=== PATIENT | male | born 1970 | race Caucasian/White ===

== ENCOUNTER 2023-02-22 19:50 | Inpatient (IN) | payer BC, SELFPAY ==
--- NOTE | 2023-02-22 20:12 | RAD REPORT ---
EXAM DESCRIPTION: CT - Ct Stroke Brain Wo Cont - 02/22/2023 8:05 pm CLINICAL HISTORY: STROKE ALERT Headache, drowsiness, CVA symptomology COMPARISON: No comparisons TECHNIQUE: All CT scans are performed using dose optimization technique as appropriate and may inclu de automated exposure control or mA/KV adjustment according to patient size. FINDINGS: No intracranial hemorrhage, hydrocephalus or extra-axial fluid collection.No areas of brai n edema or evidence of midline shift. The paranasal sinuses and mastoids are clear. The calvarium is intact. IMPRESSION: No acute intracranial abnormality. The findings were discussed with JERRELL Foster on 02/22/2023 at 8:06 p.m. by telephone.
[2023-02-22] MEDS ORDERED: TENECTEPLASE 50 MG/10 ML VIAL IV ONE (20:18)
[2023-02-22 20:46] LABS: Absolute Lymphocytes (CBC) 2.8 K/uL (0.7-4.9); Hematocrit 36.6 % (39.6-49.0); Lymphocytes % 31.4 % (15.3-44.8); MCV 80.6 fL (80-100); MPV 8.8 fL (7.6-11.3); Platelets 203 thou/uL (152-406); RBC Red Blood Cell Count 4.54 M/uL (4.33-5.43)
[2023-02-22 20:48] LABS: Protime INR 1.06
[2023-02-22 20:56] LABS: ALT/SGPT 37 U/L (16-61); AST/SGOT 19 U/L (15-37); Albumin 3.5 g/dL (3.4-5.0); BUN Blood Urea Nitrogen 20 mg/dL (7-18); Bicarbonate 27 mEq/L (21-32); Bilirubin Direct < 0.1 mg/dL (0-0.2); Bilirubin Total 0.3 mg/dL (0.2-1.0); Glomerular Filtration Rate 55 ml/min (=/>90); Glucose Level 99 mg/dL (74-106); Magnesium 2.1 mg/dL (1.6-2.4); Potassium 3.6 mEq/L (3.5-5.1); Protein, Total 7.3 g/dL (6.4-8.2); Sodium Level 142 mEq/L (136-145)
--- NOTE | 2023-02-22 20:59 | RAD REPORT ---
EXAM DESCRIPTION: RAD - Chest Single View - 02/22/2023 8:48 pm CLINICAL HISTORY: CHEST PAIN Chest pain. COMPARISON: <Comparisons> FINDINGS: Portable technique limits examination quality. The lungs are grossly clear. The heart is mildly enlarged in size. No displaced fractures. IMPRESSION: No acute intrathoracic process suspected.
[2023-02-22 21:00] LABS: Alkaline Phosphatase 87 U/L (45-117); NT PRO-BNP 97 pg/mL (<125)
--- NOTE | 2023-02-22 21:13 | RAD REPORT ---
EXAM DESCRIPTION: CT - Head angio - 02/22/2023 9:02 pm CLINICAL HISTORY: Dizziness;Declining state Headache, drowsiness, CVA symptomology COMPARISON: Ct Stroke Brain Wo Cont dated 02/22/2023 TECHNIQUE: CT angiography of the head was performed with MIPs. All CT scans are performed using dose optimization technique as appropriate and may include automated exposure control or mA/KV adjustment according to patient size. FINDINGS: No evidence of large vessel occlusion. No evidence of aneurysm is detected. No flow-limiti ng stenosis or vascular malformation identified. Antegrade flow is seen in the vertebral arteries. The vertebral arteries are codominant. The visualized dural venous sinuses are patent. IMPRESSION: No significant flow abnormality is detected.
--- NOTE | 2023-02-22 21:17 | RAD REPORT ---
EXAM DESCRIPTION: CT - Neck Angio - 02/22/2023 9:02 pm CLINICAL HISTORY: FACIAL PAIN Headache, drowsiness, CVA symptomology COMPARISON: No comparisons TECHNIQUE: CT angiography of the neck vessels was performed with MIPs. All CT scans are performed using dose optimization technique as appropriate and may include automated exposure control or mA/KV adjustment according to patient size. FINDINGS: A left aortic arch is identified with normal three vessel configuration of the great vesse ls. No significant flow abnormality is seen of the common carotid bilaterally. No significant stenosis is identified involving the cervical segments of both internal carotid arteri es. Normal flow is seen within both vertebral arteries. IMPRESSION: No significant flow abnormality of the neck vessels is identified. NASCET criteria used. Mild 0-49% stenosis Moderate 50-69% stenosis Severe 70-99% stenosis
--- NOTE | 2023-02-22 22:02 | ER ---
Nurse's Notes [facility] Name: Bobo Alfaro Age: 52 yrs Sex: Male : 1970 Arrival Date: 02/22/2023 Time: 19:50 Bed 5 Private MD: Diagnosis: Dysarthria following other cerebrovascular disease;Acute cerebrovascular accident, acute dysarthria, atypical chest pain, Presentation: 02/22 20:02 Chief complaint: Spouse and/or significant other states: left sided CP onset 0. lg3 began radiating to left shoulder with left arm numbness at 1930. at registration began slurring words with left sided facial numbness at 1950. 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 Coronavirus screen: Client denies travel out of the [place] in the last 14 days. At this time, the client does not indicate any symptoms associated with coronavirus-19. Ebola Screen: No symptoms or risks identified at this time. Initial Sepsis Screen: Does the patient meet any 2 criteria? No. Patient's initial sepsis screen is negative. Does the patient have a suspected source of infection? No. Patient's initial sepsis screen is negative. Risk Assessment: Do you want to hurt yourself or someone else? Patient reports no desire to harm self or others. Onset of symptoms was February 22, 2023 at 19:00. 20:02 Method Of Arrival: Ambulatory lg3 20:02 Acuity: ANURAG 2 lg3 Triage Assessment: 20:24 General: Appears in no apparent distress. uncomfortable, Behavior is calm, cooperative. lg3 Pain: Complains of pain in chest Pain radiates to back and left arm. EENT: No deficits noted. No signs and/or symptoms were reported regarding the EENT system. Neuro: Level of Consciousness is awake, alert, obeys commands, Oriented to person, place, time, situation, Stand Grinder are weak on left Speech is slurred, Facial symmetry appears normal, Numbness in face and left arm Reports numbness in face and left arm. Cardiovascular: No deficits noted. Reports chest pain, Capillary refill < 3 seconds Clubbing of nail beds is absent JVD is absent Patient's skin is warm and dry. Respiratory: No deficits noted. Airway is patent Respiratory effort is even, unlabored, Respiratory pattern is regular, symmetrical. GI: No deficits noted. No signs and/or symptoms were reported involving the gastrointestinal system. : No deficits noted. No signs and/or symptoms were reported regarding the genitourinary system. Derm: No deficits noted. No signs and/or symptoms reported regarding the dermatologic system. Skin is intact, is healthy with good turgor, Skin is dry, Skin is normal, Skin temperature is warm. Musculoskeletal: Range of motion: intact in all extremities. Historical: - Allergies: 20:24 No Known Allergies; lg3 - Home Meds: 20:49 telmisartan 80 mg oral tablet 1 tab daily [Active]; hydralazine 100 mg Oral tablet 1 kl tab 3 times per day [Active]; carvedilol 25 mg oral tablet 1 tab 2 times per day [Active]; eplerenone 50 mg oral tablet 1 tab 2 times per day [Active]; bumetanide 1 mg Oral tablet 1 tab daily [Active]; amlodipine 10 mg tablet 1 tab daily [Active]; aspirin 81 mg Oral capsule 1 cap daily [Active]; - PMHx: 20:24 CHF; blood clot in lung; lg3 - PSHx: 20:24 jaw; knee; foot; lg3 - Immunization history:: Adult Immunizations up to date, Client reports receiving the 2nd dose of the Covid vaccine. - Social history:: Smoking status: Patient denies any tobacco usage or history of. - Family history:: not pertinent. Screenin:00 [facility] ED Fall Risk Assessment (Adult) History of falling in the last 3 months, kl including since admission No falls in past 3 months (0 pts) Confusion or Disorientation No (0 pts) Intoxicated or Sedated No (0 pts) Impaired Gait No (0 pts) Mobility Assist Device Used No (0 pt) Altered Elimination No (0 pt) Score/Fall Risk Level 0 - 2 = Low Risk Oriented to surroundings, Maintained a safe environment, Educated pt \T\ family on fall prevention, incl call for assistance when getting out of bed. Abuse screen: Denies threats or abuse. Nutritional screening: No deficits noted. Tuberculosis screening: No symptoms or risk factors identified. 22:30 [facility]entry Swallow Protocol Brief Cognitive Screen What is your name? Normal, Where are you kl right now? Normal, What year is it? Normal. Oral Mechanism Examination Facial Symmetry: Normal, Motion: Normal, Lip Closure: Normal, Oral Mechanism Result: Normal. 3 oz Water Swallow Challenge: Pt able to drink all water without stopping, coughing, choking or throat clearing: Yes Result: PASS. Assessment: 20:50 Reassessment: going to CT. ha1 21:09 Reassessment: back from CT. ha1 21:09 Reassessment: Patient and/or family updated on plan of care and expected duration. Pain ha1 level reassessed. Patient is alert, oriented x 3, equal unlabored respirations, skin warm/dry/pink. 22:10 Reassessment: Patient and/or family updated on plan of care and expected duration. Pain ha1 level reassessed. Patient is alert, oriented x 3, equal unlabored respirations, skin warm/dry/pink. Patient states feeling better. Patient states symptoms have improved. 23:14 Reassessment: CT results back Dr Vicente at bedside. Vital Signs: 20:02 BP 174 / 92; Pulse 64; Resp 19 S; Pulse Ox 100% on R/A; Height 6 ft. 3 in. (R); lg3 20:21 BP 174 / 92; Pulse 72; Resp 16; Pulse Ox 100% on R/A; Weight 168.74 kg; Height 6 ft. 2 kl in. ; 21:09 BP 142 / 78; Pulse 63; Resp 17 S; Pulse Ox 99% on R/A; ha1 22:10 BP 128 / 65; Pulse 63; Resp 17 S; Pulse Ox 98% on R/A; ha1 22:45 BP 136 / 70; Pulse 64; Resp 17 S; Pulse Ox 99% ; ha1 02/23 01:48 BP 127 / 67; Pulse 54; Resp 18; Pulse Ox 96% on R/A; kl 02/22 20:21 Body Mass Index 47.76 (168.74 kg, 187.96 cm) Juan Carlos Coma Score: 02/22 20:29 Eye Response: spontaneous(4). Motor Response: obeys commands(6). Verbal Response: lg3 oriented(5). Total: 15. NIH Stroke Scale Scores: 20:26 NIHSS Score: 3 sp4 20:29 NIHSS Score: 3 lg3 20:32 NIHSS Score: 3 kl ED Course: 19:59 Patient arrived in ED. lg3 19:59 Patient has correct armband on for positive identification. Placed in gown. Bed in low ha1 position. Call light in reach. Side rails up X2. Adult w/ patient. 20:07 CT Stroke Brain w/o Contrast In Process Unspecified. EDMS 20:11 Elieser Vicente MD is Attending Physician. snw 20:24 Triage completed. lg3 20:24 Arm band placed on right wrist. lg3 20:29 Client placed on continuous cardiac and pulse oximetry monitoring. NIBP monitoring lg3 applied. spouter on. Family accompanied patient. 20:29 Patient maintains SpO2 saturation greater than 95% on room air. lg3 20:50 XRAY Chest (1 view) In Process Unspecified. EDMS 21:04 CT Head Angio In Process Unspecified. EDMS 21:04 CT Neck Angio In Process Unspecified. EDMS 22:01 Dong Newton MD is Hospitalizing Provider. sp4 02/23 01:49 Provided Education on: Procedure Consent. 01:49 No provider procedures requiring assistance completed. Patient admitted, IV remains in kl place. Administered Medications: 02/22 20:26 Drug: TNK FOR STROKE - Tenecteplase IV 0.25 mg/kg IV at per protocol once; MAX kl DOSE 25 mg, IVP over 5 seconds {Co-Signature: [email or web address] (Marcela Lopez RN).} Route: IV; Rate: per protocol; Site: right antecubital; Medication: 02/23 01:49 VIS not applicable for this client. Outcome: 02/22 22:01 Decision to Hospitalize by Provider. sp4 02/23 01:49 Admitted to ICU accompanied by nurse, via stretcher, room 1, Report called to Minerva matthews Condition: improved Discharge instructions given to patient, Instructed on the need for admit, Demonstrated understanding of instructions, 01:59 Patient left the ED. NIH Stroke Scale - NIH Stroke Score Date: 02/22/2023 Time: 20:26 Total Score = 3 10. Dysarthria (speech clarity - read or repeat words) - 1(Mild to Moderate) 11. Extinction and Inattention (visual/tactile/auditory/spatial/personal) - 0(No abnormality) 1a. Level of Consciousness (LOC) - 0(Alert) 1b. Level of Consciousness (LOC) (Month \T\ Age) - 0(Both) 1c. LOC Commands (Open \T\ Closes Eyes/Pulp Beater) - 0(Both) 2. Best Gaze (Lateral Gaze Paresis) - 0(Normal) 3. Visual Field Loss - 0(No visual loss) 4. Facial Palsy - 0(Normal) 5a. Left Arm: Motor (10-second hold) - 0(No drift) 5b. Right Arm: Motor (10-second hold) - 0(No drift) 6a. Left Leg: Motor (5-second hold - always test supine) - 1(Drift) 6b. Right Leg: Motor (5-second hold - always test supine) - 0(No drift) 7. Limb Ataxia (finger/nose \T\ heel/easley - test with eyes open) - 0(Absent) 8. Sensory Loss (pinprick arms/legs/face) - 1(Mild to moderate loss) 9. Best Language: Aphasia (description/naming/reading) - 0(No aphasia) Initials: sp4 NIH Stroke Scale - NIH Stroke Score Date: 02/22/2023 Time: 20:29 Total Score = 3 10. Dysarthria (speech clarity - read or repeat words) - 1(Mild to Moderate) 11. Extinction and Inattention (visual/tactile/auditory/spatial/personal) - 0(No abnormality) 1a. Level of Consciousness (LOC) - 0(Alert) 1b. Level of Consciousness (LOC) (Month \T\ Age) - 0(Both) 1c. LOC Commands (Open \T\ Closes Eyes/Pulp Beater) - 0(Both) 2. Best Gaze (Lateral Gaze Paresis) - 0(Normal) 3. Visual Field Loss - 0(No visual loss) 4. Facial Palsy - 0(Normal) 5a. Left Arm: Motor (10-second hold) - 0(No drift) 5b. Right Arm: Motor (10-second hold) - 0(No drift) 6a. Left Leg: Motor (5-second hold - always test supine) - 1(Drift) 6b. Right Leg: Motor (5-second hold - always test supine) - 0(No drift) 7. Limb Ataxia (finger/nose \T\ heel/easley - test with eyes open) - 0(Absent) 8. Sensory Loss (pinprick arms/legs/face) - 1(Mild to moderate loss) 9. Best Language: Aphasia (description/naming/reading) - 0(No aphasia) Initials: lg3 NIH Stroke Scale - NIH Stroke Score Date: 02/22/2023 Time: 20:32 Total Score = 3 10. Dysarthria (speech clarity - read or repeat words) - 0(Normal) 11. Extinction and Inattention (visual/tactile/auditory/spatial/personal) - 0(No abnormality) 1a. Level of Consciousness (LOC) - 0(Alert) 1b. Level of Consciousness (LOC) (Month \T\ Age) - 0(Both) 1c. LOC Commands (Open \T\ Closes Eyes/Pulp Beater) - 0(Both) 2. Best Gaze (Lateral Gaze Paresis) - 0(Normal) 3. Visual Field Loss - 0(No visual loss) 4. Facial Palsy - 1(Minor Paralysis) 5a. Left Arm: Motor (10-second hold) - 0(No drift) 5b. Right Arm: Motor (10-second hold) - 0(No drift) 6a. Left Leg: Motor (5-second hold - always test supine) - 1(Drift) 6b. Right Leg: Motor (5-second hold - always test supine) - 0(No drift) 7. Limb Ataxia (finger/nose \T\ heel/easley - test with eyes open) - 0(Absent) 8. Sensory Loss (pinprick arms/legs/face) - 1(Mild to moderate loss) 9. Best Language: Aphasia (description/naming/reading) - 0(No aphasia) Initials: cassie Signatures: Dispatcher [employer] Mary Mantilla RN RN kl Waters, Shelly, SOFTWARE MANAGER-C SOFTWARE MANAGER-Csnw Pinky Fuller RN RN lg3 Marcela Lopez RN RN ha1 Elieser Vicente MD MD sp4 Marcela Lopez RN ha1
--- NOTE | 2023-02-22 22:02 | EDPHYS ---
Physician Documentation [facility] Name: Bobo Alfaro Age: 52 yrs Sex: Male : 1970 Arrival Date: 02/22/2023 Time: 19:50 Bed 5 Private MD: ED Physician Elieser Vicente HPI: 02/22 20:16 This 52 yrs old Male presents to ER via Unassigned with complaints of sp4 weakness left arm , slurred speech. 20:27 52-year-old male with past medical history of congestive heart failure and pulmonary sp4 embolus, presents with acute onset of left-sided weakness described as left arm weakness associated with slurring of his speech and associated with concurrent chest pain also left-sided numbness and tingling starting at 7 PM. Patient states he takes aspirin 83 mg daily. Also history of hypertension. . Historical: - Allergies: 20:24 No Known Allergies; lg3 - Home Meds: 20:49 telmisartan 80 mg oral tablet 1 tab daily [Active]; hydralazine 100 mg Oral tablet 1 kl tab 3 times per day [Active]; carvedilol 25 mg oral tablet 1 tab 2 times per day [Active]; eplerenone 50 mg oral tablet 1 tab 2 times per day [Active]; bumetanide 1 mg Oral tablet 1 tab daily [Active]; amlodipine 10 mg tablet 1 tab daily [Active]; aspirin 81 mg Oral capsule 1 cap daily [Active]; - PMHx: 20:24 CHF; blood clot in lung; lg3 - PSHx: 20:24 jaw; knee; foot; lg3 - Immunization history:: Adult Immunizations up to date, Client reports receiving the 2nd dose of the Covid vaccine. - Social history:: Smoking status: Patient denies any tobacco usage or history of. - Family history:: not pertinent. ROS: 20:27 Constitutional: Negative for fever, chills, and weight loss, positive chest pain sp4 positive left arm numbness positive left arm weakness positive for slurred speech positive left-sided body numbness. Eyes: Negative for injury, pain, redness, and discharge, 20:27 All other systems are negative, Exam: 20:27 Constitutional: This is a well developed, well nourished patient who is awake, alert, sp4 and in no acute distress. Head/Face: Normocephalic, atraumatic. Eyes: Pupils equal round and reactive to light, extra-ocular motions intact. Lids and lashes normal. Conjunctiva and sclera are not injected. Cornea within normal limits. Periorbital areas with no swelling, redness, or edema. ENT: Nares patent. No nasal discharge, no septal abnormalities noted. Tympanic membranes are normal and external auditory canals are clear. Oropharynx with no redness, swelling, or masses, exudates, or evidence of obstruction, uvula midline. Mucous membranes moist. Neck: Trachea midline, no thyromegaly or masses palpated, and no cervical lymphadenopathy. Supple, full range of motion without nuchal rigidity, or vertebral point tenderness. Chest/axilla: Normal chest wall appearance and motion. Nontender with no deformity. No lesions are appreciated. Cardiovascular: Regular rate and rhythm with a normal S1 and S2. No gallops, murmurs, or rubs. Normal PMI, no JVD. No pulse deficits. Respiratory: Lungs have equal breath sounds bilaterally, clear to auscultation and percussion. No rales, rhonchi or wheezes noted. No increased work of breathing, no retractions or nasal flaring. Abdomen/GI: Soft, non-tender, with normal bowel sounds. No distension or tympany. No guarding or rebound. No evidence of tenderness throughout. Back: No spinal tenderness. No costovertebral tenderness. Skin: Warm, dry with normal turgor. Normal color with no rashes, no lesions, and no evidence of cellulitis. MS/ Extremity: Pulses equal, no cyanosis. Neurovascular intact. Full, normal range of motion. Neuro: Awake and alert, GCS 15, oriented to person, place, time, and situation. Positive left facial numbness, positive slurring of the speech, positive mild left arm weakness 4 out of 5, positive mild left lower extremity weakness 4 out of 5 , positive decreased sensation on the left side Psych: Awake, alert, with orientation to person, place and time. Behavior, mood, and affect are within normal limits 20:27 ECG was reviewed by the Attending Physician. There is EKG 2008, normal sinus rhythm with a rate of 69, normal EKG. No ST elevation or depression, no ectopy Vital Signs: 20:02 BP 174 / 92; Pulse 64; Resp 19 S; Pulse Ox 100% on R/A; Height 6 ft. 3 in. (R); lg3 20:21 BP 174 / 92; Pulse 72; Resp 16; Pulse Ox 100% on R/A; Weight 168.74 kg; Height 6 ft. 2 kl in. ; 21:09 BP 142 / 78; Pulse 63; Resp 17 S; Pulse Ox 99% on R/A; ha1 22:10 BP 128 / 65; Pulse 63; Resp 17 S; Pulse Ox 98% on R/A; ha1 22:45 BP 136 / 70; Pulse 64; Resp 17 S; Pulse Ox 99% ; ha1 02/23 01:48 BP 127 / 67; Pulse 54; Resp 18; Pulse Ox 96% on R/A; kl 02/22 20:21 Body Mass Index 47.76 (168.74 kg, 187.96 cm) kl NIH Stroke Scale Scores: 02/22 20:26 NIHSS Score: 3 sp4 20:29 NIHSS Score: 3 lg3 20:32 NIHSS Score: 3 kl Parshall Coma Score: 20:29 Eye Response: spontaneous(4). Motor Response: obeys commands(6). Verbal Response: lg3 oriented(5). Total: 15. MDM: 20:08 Data reviewed: vital signs, nurses notes. Management of patient was discussed with the snw following: Dr. Resendez, CT head negative for acute findings. 20:11 Patient medically screened. snw 21:59 Differential Diagnosis altered mental status, sepsis, flu. Data reviewed: lab test sp4 result(s), EKG, radiologic studies, CT scan, plain films. Consideration of Admission/Observation Patient was admitted/placed on observation. Escalation of care including admission/observation considered. Management of patient was discussed with the following: Hospitalist: Discussed with hospitalist. Sign Painter Helper: Discussed with neurologist. ED course: Patient's speech has improved after administration of tenecteplase. Patient states chest pain is gone. Patient was discussed with neurologist who requested admission to ICU. CT angiography of the head and neck reveals no large vessel occlusion. Patient is appropriate for ICU admission here. . 02/22 20:01 Order name: Basic Metabolic Panel; Complete Time: 21:44 snw 02/22 20:01 Order name: CBC with Diff; Complete Time: 21:44 snw 02/22 20:01 Order name: LFT's; Complete Time: 21:44 snw 02/22 20:01 Order name: Magnesium; Complete Time: 21:44 snw 02/22 20:01 Order name: NT PRO-BNP; Complete Time: 21:44 snw 02/22 20:01 Order name: PT-INR; Complete Time: 21:44 snw 02/22 20:01 Order name: Troponin HS; Complete Time: 21:44 snw 02/22 20:01 Order name: Strep snw 02/22 20:01 Order name: Ptt, Activated; Complete Time: 21:44 snw 02/22 20:01 Order name: UDS snw 02/22 20:01 Order name: XRAY Chest (1 view); Complete Time: 21:44 snw 02/22 20:01 Order name: CT Head Angio; Complete Time: 21:44 snw 02/22 20:01 Order name: CT Neck Angio; Complete Time: 21:44 snw 02/22 20:01 Order name: CT Stroke Brain w/o Contrast; Complete Time: 20:17 snw 02/22 20:01 Order name: EKG; Complete Time: 20:02 snw 02/22 20:01 Order name: Cardiac monitoring; Complete Time: 20:26 snw 02/22 20:01 Order name: EKG - Nurse/Tech; Complete Time: 20:26 snw 02/22 20:01 Order name: IV Saline Lock; Complete Time: 20:26 snw 02/22 20:01 Order name: Labs collected and sent; Complete Time: 20:26 snw 02/22 20:01 Order name: O2 Per Protocol; Complete Time: 20:26 snw 02/22 20:01 Order name: O2 Sat Monitoring; Complete Time: 20:26 snw 02/22 20:01 Order name: Accucheck snw 02/22 20:01 Order name: NPO; Complete Time: 20:26 snw 02/22 20:01 Order name: Stroke Swallow Screen snw EC:27 Rate is 69 beats/min. Rhythm is regular, Normal Sinus Rhythm. QRS [place] is Normal. MS sp4 interval is normal. QRS interval is normal. QT interval is normal. No Q waves. T waves are Normal. No ST changes noted. Clinical impression: Normal ECG. Interpreted by me. Reviewed by me. Administered Medications: 20:26 Drug: TNK FOR STROKE - Tenecteplase IV 0.25 mg/kg IV at per protocol once; MAX kl DOSE 25 mg, IVP over 5 seconds {Co-Signature: ha1 (Marcela Lopez RN).} Route: IV; Rate: per protocol; Site: right antecubital; Disposition Summary: 02/22/23 22:01 Hospitalization Ordered Notes: Hospitalization Status: Inpatient Admission sp4 Provider: Dong Newton sp4 Location: Intensive Care Unit sp4 Condition: Serious sp4 Problem: new sp4 Symptoms: have improved sp4 Bed/Room Type: Standard sp4 Room Assignment: 1-(02/23/23 01:38) eb1 Diagnosis - Dysarthria following other cerebrovascular disease sp4 - Acute cerebrovascular accident, acute dysarthria, atypical chest pain, sp4 Forms: - Medication Reconciliation Form sp4 - SBAR form sp4 - Leadership Thank You Letter sp4 NIH Stroke Scale - NIH Stroke Score Date: 02/22/2023 Time: 20:26 Total Score = 3 10. Dysarthria (speech clarity - read or repeat words) - 1(Mild to Moderate) 11. Extinction and Inattention (visual/tactile/auditory/spatial/personal) - 0(No abnormality) 1a. Level of Consciousness (LOC) - 0(Alert) 1b. Level of Consciousness (LOC) (Month \T\ Age) - 0(Both) 1c. LOC Commands (Open \T\ Closes Eyes/Tank Builder) - 0(Both) 2. Best Gaze (Lateral Gaze Paresis) - 0(Normal) 3. Visual Field Loss - 0(No visual loss) 4. Facial Palsy - 0(Normal) 5a. Left Arm: Motor (10-second hold) - 0(No drift) 5b. Right Arm: Motor (10-second hold) - 0(No drift) 6a. Left Leg: Motor (5-second hold - always test supine) - 1(Drift) 6b. Right Leg: Motor (5-second hold - always test supine) - 0(No drift) 7. Limb Ataxia (finger/nose \T\ heel/easley - test with eyes open) - 0(Absent) 8. Sensory Loss (pinprick arms/legs/face) - 1(Mild to moderate loss) 9. Best Language: Aphasia (description/naming/reading) - 0(No aphasia) Initials: sp4 NIH Stroke Scale - NIH Stroke Score Date: 02/22/2023 Time: 20:29 Total Score = 3 10. Dysarthria (speech clarity - read or repeat words) - 1(Mild to Moderate) 11. Extinction and Inattention (visual/tactile/auditory/spatial/personal) - 0(No abnormality) 1a. Level of Consciousness (LOC) - 0(Alert) 1b. Level of Consciousness (LOC) (Month \T\ Age) - 0(Both) 1c. LOC Commands (Open \T\ Closes Eyes/Tank Builder) - 0(Both) 2. Best Gaze (Lateral Gaze Paresis) - 0(Normal) 3. Visual Field Loss - 0(No visual loss) 4. Facial Palsy - 0(Normal) 5a. Left Arm: Motor (10-second hold) - 0(No drift) 5b. Right Arm: Motor (10-second hold) - 0(No drift) 6a. Left Leg: Motor (5-second hold - always test supine) - 1(Drift) 6b. Right Leg: Motor (5-second hold - always test supine) - 0(No drift) 7. Limb Ataxia (finger/nose \T\ heel/easley - test with eyes open) - 0(Absent) 8. Sensory Loss (pinprick arms/legs/face) - 1(Mild to moderate loss) 9. Best Language: Aphasia (description/naming/reading) - 0(No aphasia) Initials: lg3 NIH Stroke Scale - NIH Stroke Score Date: 02/22/2023 Time: 20:32 Total Score = 3 10. Dysarthria (speech clarity - read or repeat words) - 0(Normal) 11. Extinction and Inattention (visual/tactile/auditory/spatial/personal) - 0(No abnormality) 1a. Level of Consciousness (LOC) - 0(Alert) 1b. Level of Consciousness (LOC) (Month \T\ Age) - 0(Both) 1c. LOC Commands (Open \T\ Closes Eyes/Tank Builder) - 0(Both) 2. Best Gaze (Lateral Gaze Paresis) - 0(Normal) 3. Visual Field Loss - 0(No visual loss) 4. Facial Palsy - 1(Minor Paralysis) 5a. Left Arm: Motor (10-second hold) - 0(No drift) 5b. Right Arm: Motor (10-second hold) - 0(No drift) 6a. Left Leg: Motor (5-second hold - always test supine) - 1(Drift) 6b. Right Leg: Motor (5-second hold - always test supine) - 0(No drift) 7. Limb Ataxia (finger/nose \T\ heel/easley - test with eyes open) - 0(Absent) 8. Sensory Loss (pinprick arms/legs/face) - 1(Mild to moderate loss) 9. Best Language: Aphasia (description/naming/reading) - 0(No aphasia) Initials: Signatures: Dispatcher [employer] EDMS Mary Reis RN RN kl Waters, Shelly, TARGETEER-C TARGETEER-Csnw Janine Alvarado RN RN eb1 Pinky Fuller RN RN lg3 Elieser Vicente MD MD sp4 Marcela Lopez RN ha1 Corrections: (The following items were deleted from the chart) 02/23 01:38 02/22 22:01 alejandro jansen
--- NOTE | 2023-02-22 22:59 | P.HP ---
Certification for Inpatient Patient admitted to: Inpatient With expected LOS: >2 Midnights Practitioner: I am a practitioner with admitting privileges, knowledge of patient current condition, hospital course, and medical plan of care. Services: Services provided to patient in accordance with Admission requirements found in Title 42 Section 412.3 of the Code of Federal Regulations Patient History Date of Service: 02/22/23 Reason for admission: slurring of speech History of Present Illness: 52-year-old male with a past medical history of hypertension, CHF, history of blood clot who presented to the ER with chest pain and weakness of left arm and slurring of speech. Patient was doing good but all of a sudden he felt like weakness of left side of the body and left arm with slurring of speech and associated with numbness of the face and tingling of left side of the body started at 7 PM. Denies any headache. No fever or chills. No nausea vomiting or diarrhea. No sick contacts. Patient was assessed in the ER and was started on TNK and the patient was admitted for post TNK monitoring in ICU . Home medications list reviewed: Yes - Past Medical/Surgical History Past Medical History: Reviewed- Non-Contributory -: Hypertension -: CHF -: History of blood clot Past Surgical History: Reviewed- Non-Contributory - Family History Family History: Reviewed- Non-Contributory (Dip) Review of Systems 10-point ROS is otherwise unremarkable Physical Examination - Vital Signs Temperature: 98.6 F Blood Pressure: 128/85 Pulse: 78 Respirations: 18 Pulse Ox (%): 96 - Physical Exam General: Alert, In no apparent distress, Oriented x3, Cooperative HEENT: Atraumatic, Normocephalic Neck: Supple, No Thyromegaly Respiratory: Clear to auscultation bilaterally, Normal air movement, Crackles/rales Cardiovascular: Regular rate/rhythm, Normal S1 S2, No rubs Capillary refill: <2 Seconds Gastrointestinal: Soft and benign, W/out hepatosplenomegaly, No ascites, No tenderness Musculoskeletal: No clubbing, No swelling Integumentary: No rashes Neurological: Normal strength at 5/5 x4 extr, Normal tone, Sensation intact, Cranial nerves 3-12 intact, Normal reflexes 2+ Lymphatics: No axilla or inguinal lymphadenopathy - Studies Laboratory Data (last 24 hrs) 02/22/23 02/22/23 02/22/23 20:30 20:30 20:30 WBC 8.90 Hgb 12.8 L Hct 36.6 L Plt Count 203 PT 11.6 INR 1.06 APTT 32.3 Sodium 142 Potassium 3.6 BUN 20 H Creatinine 1.51 H Glucose 99 Magnesium 2.1 Total Bilirubin 0.3 AST 19 ALT 37 Alkaline Phosphatase 87 Microbiology Data (last 24 hrs): 02/22/23 20:30 Throat Group A Streptococcus Rapid Screen - Final Assessment and Plan - Problems (Diagnosis) (1) CVA (cerebral vascular accident) Current Visit: Yes Status: Acute Plan: Acute Stroke Post tNK During the ICU Monitor neuro vital signs Neurology consulted Monitor under telemetry Stroke workup including echocardiogram and carotid Doppler PT OT evaluation (2) CHF exacerbation Current Visit: Yes Status: Acute Plan: Chronic possibly combined systolic/diastolic CHF Unknown EF Will get an echocardiogram Monitor closely on telemetry Aggressive diuresis Continue home medications and titrate as needed (3) Hypertension Current Visit: Yes Status: Chronic Plan: Possible hypertension for now Hold antihypertensives for now Monitor closely (4) Hyperlipidemia Current Visit: Yes Status: Chronic Plan: Started atorvastatin Will get a lipid panel and A1c in a.m. Discharge Plan: Home - Advance Directives Does patient have a Living Will: No Does patient have a Durable POA for Healthcare: No - Code Status/Comfort Care Code Status: Full Code Time Spent Managing Pts Care (In Minutes): 32
[2023-02-22] MEDS ORDERED: ACETAMINOPHEN 500 MG TAB PO PRN (23:08)
[2023-02-22] MEDS ORDERED: ONDANSETRON 4 MG/2 ML VIAL IV PRN (23:08)
[2023-02-22 23:47] LABS: Barbiturates NEGATIVE (NEGATIVE); Benzodiazepines NEGATIVE (NEGATIVE); Cocaine NEGATIVE (NEGATIVE); METHAMPHETAM NEGATIVE (NEGATIVE); Methadone NEGATIVE (NEGATIVE); Opiates NEGATIVE (NEGATIVE); Phencyclidine NEGATIVE (NEGATIVE); THC Cannibis NEGATIVE (NEGATIVE)
[2023-02-23 02:10] LABS: Absolute Lymphocytes (CBC) 2.2 K/uL (0.7-4.9); Lymphocytes % 34.7 % (15.3-44.8); MCV 81.8 fL (80-100); MPV 8.7 fL (7.6-11.3); Platelets 162 thou/uL (152-406); RBC Red Blood Cell Count 4.15 M/uL (4.33-5.43)
[2023-02-23 02:29] LABS: Albumin 3.2 g/dL (3.4-5.0); Bilirubin Total 0.2 mg/dL (0.2-1.0); Potassium 3.6 mEq/L (3.5-5.1); Protein, Total 6.6 g/dL (6.4-8.2)
[2023-02-23 03:05] LABS: Troponin High Sensitivity 15.3 pg/mL (<58.9)
--- NOTE | 2023-02-23 07:36 | RAD REPORT ---
EXAM DESCRIPTION: US - CP - 02/23/2023 1:19 am CLINICAL HISTORY: CVA COMPARISON: Neck Angio dated 02/22/2023 TECHNIQUE: Real-time sonographic evaluation of both carotid systems was performed. Doppler interroga tion was performed with waveform tracing bilaterally. FINDINGS: Normal high resistance waveforms are noted in both external carotid arteries. The common c arotid arteries and internal carotid arteries show normal low resistance waveforms. No significant plaque formation is seen. Peak systolic and end diastolic velocity values and the ICA/ CCA ratios are in the non-hemodynamically significant range. Antegrade flow seen in both vertebral arteries. IMPRESSION: No evidence of a hemodynamically significant stenosis.
[2023-02-23] MEDS ORDERED: LORazepam 2 MG/ML VIAL IV ONE (09:00)
--- NOTE | 2023-02-23 09:23 | RAD REPORT ---
EXAM DESCRIPTION: MRI - Brain Wo Cont - 02/23/2023 9:16 am CLINICAL HISTORY: CVA COMPARISON: Head angio dated 02/22/2023; Ct Stroke Brain Wo Cont dated 02/22/2023 TECHNIQUE: Sagittal T1-weighted images were obtained along with PD/heavily T2-weighted and T2-FLAIR images. Axial DWI and ADC mapping sequences were also obtained along with coronal heavily T2-weighted images were obtained. FINDINGS: No intracranial hemorrhage, mass or acute infarction. There is no edema or shift of midlin e structures. No extra-axial fluid collections. Signal voids are seen as a normal finding in the adiel r intracranial vessels. No significant white matter disease. Mastoid air cells and paranasal sinuses are clear. IMPRESSION: No acute intracranial abnormality. Specifically, no evidence of acute infarct.
--- NOTE | 2023-02-23 09:34 | P.PN ---
Subjective Date of Service: 02/23/23 Chief Complaint: slurring of speech Pt is resting comfortably in bed. He received tPA at 8pm on 02/22/23. The left sided weakness has improved. Will repeat CT head and start aspirin after 24hrs from the time of tPA administration. No other complaints. Review of Systems 10-point ROS is otherwise unremarkable General: Other (Morbidly obese), Unremarkable Eyes: Unremarkable ENT: Unremarkable Respiratory: Unremarkable Cardiovascular: Unremarkable Gastrointestinal: Unremarkable Genitourinary: Unremarkable Musculoskeletal: Unremarkable Neurological: Unremarkable Lymphatics: Unremarkable Physical Examination - Vital Signs Temperature: 97.8 F Blood Pressure: 152/93 Pulse: 60 Respirations: 21 Pulse Ox (%): 97 - Physical Exam General: Alert, In no apparent distress, Oriented x3, Obese (morbidly obese) HEENT: Atraumatic, Normocephalic, PERRLA Neck: Supple, 2+ carotid pulse no bruit Respiratory: Clear to auscultation bilaterally, Normal air movement Cardiovascular: No edema, Normal pulses, Regular rate/rhythm, Normal S1 S2 Capillary refill: <2 Seconds Gastrointestinal: Normal bowel sounds, Soft and benign, Non-distended Musculoskeletal: No clubbing, No swelling Integumentary: No rashes, No breakdown Neurological: Normal gait, Normal speech, Normal strength at 5/5 x4 extr Lymphatics: No axilla or inguinal lymphadenopathy - Studies Laboratory Data (last 24 hrs) 02/22/23 02/22/23 02/22/23 20:30 20:30 20:30 WBC 8.90 Hgb 12.8 L Hct 36.6 L Plt Count 203 PT 11.6 INR 1.06 APTT 32.3 Sodium 142 Potassium 3.6 BUN 20 H Creatinine 1.51 H Glucose 99 Magnesium 2.1 Total Bilirubin 0.3 AST 19 ALT 37 Alkaline Phosphatase 87 Microbiology Data (last 24 hrs): 02/22/23 20:30 Throat Group A Streptococcus Rapid Screen - Final Assessment And Plan - Plan Acute CVA: s/p tPA. The left sided weakness has improved. Will follow up MRI brain, carotid ultrasound, and Echo. CT head, CTA head and neck are unremarkable. Will repeat CT head and start aspirin 24hrs after tPA. Neurology is following. CHF exacerbation: Will follow up Echo. Continue lasix, strict I/O and daily weight. Htn: Will allow permissive htn. HLD: atorvastatin. Morbid obesity: Pt was advised to lose weight. DVT ppx: SCD Discharge Plan: Home Plan to discharge in: 24 Hours - Code Status/Comfort Care Code Status Assessed: Yes
--- NOTE | 2023-02-23 11:47 | EKG ---
Test Date: 2023-02-22 Test Time: 20:09:45 Electron Beam Welder: RACHEL MEASUREMENT RESULTS: Intervals: Rate: 69 MD: 154 QRSD: 94 QT: 404 QTc: 432 [place]zell: P: 63 MD: 154 QRS: 61 T: 83 INTERPRETIVE STATEMENTS: Normal sinus rhythm Normal ECG No previous ECG available for comparison Electronically Signed On 02-23-23 11:46:05 STEEL ROD BUSTER by Mickey Wiley
--- NOTE | 2023-02-23 12:09 | ECHO ---
HEIGHT: 6 ft 2 in WEIGHT: 372 lb 0.128 oz DATE OF STUDY: 03/05/[address]: Darío Newton 2-DIMENSIONAL: YES M.MODE: YES DOPPLER: YES COLOR FLOW: YES TDS: PORTABLE: YES DEFINITY: BUBBLE STUDY: DIAGNOSIS: STROKE CARDIAC HISTORY: CATHERIZATION: NO SURGERY: NO PROSTHETIC VALVE: NO PACEMAKER: NO MEASUREMENTS (cm) DIASTOLIC (NORMALS) SYSTOLIC (NORMALS) IVSd 1.3 (0.6-1.2) LA Diam (1.9-4.0) LVEF 60% LVIDd 3.4 (3.5-5.7) LVIDs 2.4 (2.0-3.5) %FS 31% LVPWd 1.4 (0.6-1.2) Ao Diam 3.2 (2.0-3.7) 2 DIMENSIONAL ASSESSMENT: RIGHT ATRIUM: NORMAL LEFT ATRIUM: NORMAL RIGHT VENTRICLE: NORMAL LEFT VENTRICLE: LEFT VENTRICULAR HYPERTROPHY TRICUSPID VALVE: MILD TRICUSPID REGURGITATION MITRAL VALVE: MILD MITRAL REGURGITATION PULMONIC VALVE: NORMAL AORTIC VALVE: NORMAL PERICARDIAL EFFUSION: NONE AORTIC ROOT: NORMAL LEFT VENTRICULAR WALL MOTION: NORMAL DOPPLER/COLOR FLOW: SEE BELOW COMMENTS: 1. NORMAL LEFT VENTRICULAR EJECTION FRACTION 55-60% WITH NORMAL WALL MOTION 2. MILD CONCENTRIC LEFT VENTRICULAR HYPERTROPHY 3. MILD MITRAL REGURGITATION 4. MILD TRICUSPID REGURGITATION TECHNOLOGIST: CINDY PETERSON
[2023-02-23] MEDS: HYDRALAZINE HCL 25 MG TABLET PO SCH ×2 (14:00→20:21)
[2023-02-23] MEDS ORDERED: ATORVASTATIN 80 MG TAB PO SCH (21:00)
[2023-02-23] MEDS ORDERED: ATORVASTATIN 20 MG TAB PO SCH (21:00)
--- NOTE | 2023-02-23 21:23 | RAD REPORT ---
EXAM DESCRIPTION: CT - Head Brain Wo Cont - 02/23/2023 9:18 pm CLINICAL HISTORY: s/p TNK Headache, drowsiness, CVA symptomology COMPARISON: Head angio dated 02/22/2023; Ct Stroke Brain Wo Cont dated 02/22/2023; Brain Wo Cont jr ed 02/23/2023 TECHNIQUE: All CT scans are performed using dose optimization technique as appropriate and may inclu de automated exposure control or mA/KV adjustment according to patient size. FINDINGS: No intracranial hemorrhage, hydrocephalus or extra-axial fluid collection.No areas of brai n edema or evidence of midline shift. The paranasal sinuses and mastoids are clear. The calvarium is intact. IMPRESSION: No acute intracranial abnormality.
[2023-02-24 04:13] VITALS: BMI 46.6
[2023-02-24 04:32] LABS: Absolute Lymphocytes (CBC) 1.9 K/uL (0.7-4.9); Hematocrit 36.9 % (39.6-49.0); Lymphocytes % 29.4 % (15.3-44.8); MCV 82.2 fL (80-100); MPV 8.4 fL (7.6-11.3); Platelets 184 thou/uL (152-406); RBC Red Blood Cell Count 4.49 M/uL (4.33-5.43)
[2023-02-24 04:51] LABS: Potassium 3.9 mEq/L (3.5-5.1)
[2023-02-24 06:04] LABS: RPR (Rapid Plasma Reagin) NON-REACT (NON-REACT)
[2023-02-24 07:07] VITALS: TEMP 98.2
[2023-02-24] MEDS ORDERED: ASPIRIN 81 MG CHEWABLE TABLET ONE (08:05)
[2023-02-24] MEDS: HYDRALAZINE HCL 25 MG TABLET PO SCH (08:09)
[2023-02-24] MEDS ORDERED: HYDRALAZINE HCL 20 MG/ML VIAL IV PRN (08:50)
--- NOTE | 2023-02-24 08:56 | P.PN ---
Subjective Date of Service: 02/24/23 Chief Complaint: slurring of speech Pt is resting comfortably in bed. He received tPA at 8pm on 02/22/23. The left sided weakness has improved. MRI brain and repeat CT head are unremarkable. Will start aspirin 24hrs from the time of tPA administration. No other complaints. Review of Systems 10-point ROS is otherwise unremarkable General: Unremarkable Eyes: Unremarkable ENT: Unremarkable Respiratory: Unremarkable Cardiovascular: Unremarkable Gastrointestinal: Unremarkable Genitourinary: Unremarkable Musculoskeletal: Unremarkable Integumentary: Unremarkable Neurological: Unremarkable Lymphatics: Unremarkable Physical Examination - Vital Signs Temperature: 98.2 F Blood Pressure: 176/114 Pulse: 70 Respirations: 19 Pulse Ox (%): 92 - Physical Exam General: Alert, In no apparent distress, Oriented x3, Obese (Morbidly obese) HEENT: Atraumatic, Normocephalic Neck: Supple, 2+ carotid pulse no bruit Respiratory: Clear to auscultation bilaterally, Normal air movement Cardiovascular: No edema, Normal pulses, Normal S1 S2 Capillary refill: <2 Seconds Gastrointestinal: Normal bowel sounds, Soft and benign, Non-distended Musculoskeletal: No clubbing, No swelling Integumentary: No rashes, No breakdown Neurological: Normal gait, Normal speech, Normal strength at 5/5 x4 extr, Sensation intact Lymphatics: No axilla or inguinal lymphadenopathy - Studies Microbiology Data (last 24 hrs): 02/22/23 20:30 Throat Group A Streptococcus Rapid Screen - Final Assessment And Plan - Plan Acute CVA: s/p tPA. The left sided weakness has improved. Repeat CT head and MRI brain are unremarkable. Echo shows EF 55 - 60% with mild LVH, mild TR and MR. CT head, CTA head and neck are unremarkable. Will continue aspirin and atorvstatin. Neurology is following. CHF exacerbation: Echo shows EF 55 - 60% with mild LVH, mild TR and MR. Continue lasix, strict I/O and daily weight. Htn: Will continue hydralazine, amlodipine with prn iv hydralazine. HLD: atorvastatin. Morbid obesity: Pt was advised to lose weight. DVT ppx: SCD Dispo: Will dc soon
[2023-02-24] MEDS ORDERED: AMLODIPINE 10 MG TAB PO SCH (09:00)
[2023-02-24] MEDS ORDERED: ASPIRIN EC 81 MG TAB PO SCH (09:00)
[2023-02-24] MEDS ORDERED: BUMETANIDE 1 MG TABLET PO SCH (09:00)
[2023-02-24] MEDS ORDERED: AMLODIPINE 10 MG TAB ONE (09:16)
[2023-02-24] MEDS ORDERED: LORazepam 2 MG/ML VIAL IV ONE (09:57)
[2023-02-24 10:32] VITALS: BP 164/92
[2023-02-24 11:26] VITALS: O2SAT 99
--- NOTE | 2023-02-24 12:14 | P.DS ---
Admission Date: 02/22/23 Discharge Date: 02/24/23 Disposition: ROUTINE DISCHARGE Discharge Condition: GOOD Reason for Admission: slurring of speech Brief History of Present Illness: 52-year-old male with a past medical history of hypertension, CHF, history of blood clot who presented to the ER with chest pain and weakness of left arm and slurring of speech. Patient was doing good but all of a sudden he felt like weakness of left side of the body and left arm with slurring of speech and associated with numbness of the face and tingling of left side of the body started at 7 PM. Denies any headache. No fever or chills. No nausea vomiting or diarrhea. No sick contacts. Patient was assessed in the ER and was started on TNK and the patient was admitted for post TNK monitoring in ICU . Hospital Course: Pt is a 52-year-old male with past medical history of hypertension, CHF, and DVT who presented to the ER with chest pain, weakness of left arm and slurring of speech. Patient was doing good but all of a sudden he felt weakness of left side of the body and left arm with slurring of speech and associated with numbness of the face and tingling of left side of the body that started at 7 PM. On adm ission, CT head was unremarkable. Neurology gave tPA and pt was observed in the ICU for 24 hours. We allowed permissive htn and continued atorvastatin. MRI brain was unremarkable. Echo showed EF 55 - 60% with mild LVH, mild TR and MR. CTA head and neck were unremarkable. Repeat CT head after tPA was unremarkable. We continued aspirin and atorvstatin. We optimized BP regimen for BP control. Pt was advised to lose weight and follow up with PCP within 1 week. He was in NAD prior to discharge. Vital Signs/Physical Exam: Temp Pulse Resp BP Pulse Ox 98.2 F 65 19 164/92 H 96 02/24/23 08:56 02/24/23 10:31 02/24/23 08:56 02/24/23 10:31 02/24/23 10:00 Laboratory Data at Discharge: WBC 6.30 thou/uL (4.3-10.9) 02/24/23 04:07 Hgb 12.4 g/dL (13.6-17.9) L 02/24/23 04:07 Hct 36.9 % (39.6-49.0) L 02/24/23 04:07 Plt Count 184 thou/uL (152-406) 02/24/23 04:07 PT 11.6 SECONDS (9.5-12.5) 02/22/23 20:30 INR 1.06 02/22/23 20:30 APTT 32.3 SECONDS (24.3-36.9) 02/22/23 20:30 Sodium 138 mEq/L (136-145) 02/24/23 04:07 Potassium 3.9 mEq/L (3.5-5.1) 02/24/23 04:07 BUN 16 mg/dL (7-18) 02/24/23 04:07 Creatinine 1.25 mg/dL (0.70-1.30) 02/24/23 04:07 Glucose 113 mg/dL (74-106) H 02/24/23 04:07 Magnesium 2.1 mg/dL (1.6-2.4) 02/22/23 20:30 Total Bilirubin 0.2 mg/dL (0.2-1.0) 02/23/23 01:26 AST 18 U/L (15-37) 02/23/23 01:26 ALT 35 U/L (16-61) 02/23/23 01:26 Alkaline Phosphatase 82 U/L (45-117) 02/23/23 01:26 Triglycerides 203 mg/dL (<150) H 02/23/23 01:26 Cholesterol 118 mg/dL (<200) 02/23/23 01:26 HDL Cholesterol 31 mg/dL (40-60) L 02/23/23 01:26 Cholesterol/HDL Ratio 3.81 02/23/23 01:26 Home Medications: Amlodipine [Norvasc*] 10 mg PO DAILY 02/23/23 Aspirin [Aspirin EC] 81 mg PO DAILY 02/23/23 Bumetanide [Bumex*] 1 mg PO DAILY 02/23/23 Carvedilol [Coreg] 25 mg PO BID 02/23/23 Eplerenone 50 mg PO BID 02/23/23 Hydralazine HCl 100 mg PO TID 02/23/23 Telmisartan [Micardis] 80 mg PO DAILY 02/23/23 Atorvastatin Calcium [Lipitor] 80 mg PO BEDTIME 90 Days #90 tab 02/24/23 Atorvastatin Calcium [Lipitor] 80 mg PO BEDTIME 90 Days #90 tab 02/24/23 New Medications: Atorvastatin Calcium [Lipitor] 80 mg PO BEDTIME 90 Days #90 tab Physician Discharge Instructions: Continue ad aggie activity. Take atorvastatin 80mg po at bedtime with other home meds. Follow up with PCP within 1 week. Try to lose some weight. Diet: AHA Activity: Ad aggie Followup: Daina Allen MD [Primary Care Provider] -
[2023-02-25 15:26] LABS: Albumin, (SPE) 3.6 g/dL (3.8-4.8); Alpha-1-Globulins 0.3 g/dL (0.2-0.3); Alpha-2-Globulins 0.6 g/dL (0.5-0.9); Gamma Globulins 0.9 g/dL (0.8-1.7); INTERPRETATION REPORT
[2023-03-02 15:37] LABS: Protein C Antigen 84 % normal (70-140)
[2023-03-03 16:27] LABS: Prothrombin Gene Analysis Test NEGATIVE
== END 2023-02-24 15:00 | disposition home or self-care (01) | DRG 62 ==
LOC: ER 19:50 → ERHOLD 22:03 → 3RD-ICU 02-23 01:48
PROVIDERS: ADMIT Family Medicine; ATTEND Hospitalist
PROC: 3E03317 Introduction of Other Thrombolytic into Peripheral Vein, Percutaneous Approach (ICD-10-PCS; principal; 2023-02-22)
PROC: 5A09357 Assistance with Respiratory Ventilation, Less than 24 Consecutive Hours, Continuous Positive Airway Pressure (ICD-10-PCS; 2023-02-23)
DX: I63.9 Cerebral infarction, unspecified (principal); G81.94 Hemiplegia, unspecified affecting left nondominant side; Z68.42 Body mass index [BMI] 45.0-49.9, adult; E66.01 Morbid (severe) obesity due to excess calories; I11.0 Hypertensive heart disease with heart failure; I50.9 Heart failure, unspecified; I08.1 Rheumatic disorders of both mitral and tricuspid valves; E78.5 Hyperlipidemia, unspecified; R47.1 Dysarthria and anarthria; R07.9 Chest pain, unspecified; R47.81 Slurred speech; R29.703 NIHSS score 3; Z79.82 Long term (current) use of aspirin; Z79.02 Long term (current) use of antithrombotics/antiplatelets; Z79.899 Other long term (current) drug therapy
CPT/HCPCS: 36415; 70450; 70496; 70498; 70551; 71045; 80048; 80053; 80061; 80076; 80307; 81240; 81241; 82306; 82565; 82607; 83090; 83735; 83880; 84165; 84484; 85025; 85300; 85302; 85305; 85306; 85610; 85730; 86021; 86147; 86592; 87070; 87081; 92610; 92977; 93005; 93306; 93880; 94660; 96374; 97116; 97161; 99291; 99292; J3101; Q9967